=== PATIENT | male | born 1975 | race African-American/Black ===

== ENCOUNTER 2022-10-02 11:40 | Emergency (ER) | payer SELFPAY ==
[~2022-10-02] VITALS: Ht 180.3 cm; Wt 100.0 kg
[2022-10-02 12:44] LABS: URINE BILIRUBIN - DIPSTICK NEGATIVE (NEGATIVE); URINE BLOOD DIPSTICK NEGATIVE (NEGATIVE); URINE COLOR YELLOW; URINE GLUCOSE - DIPSTICK NEGATIVE (NEGATIVE); URINE KETONE NEGATIVE (NEGATIVE); URINE LEUK ESTERASE NEGATIVE (NEGATIVE); URINE PROTEIN - DIPSTICK NEGATIVE (NEG-TRACE); URINE SPECIFIC GRAVITY 1.015; URINE UROBILINOGEN - DIPSTICK 0.2 E.U./dL (0.2)
[2022-10-02 12:50] LABS: URINE NITRITE - DIPSTICK NEGATIVE (Negative)
[2022-10-02] MEDS ORDERED: BACTRIM DS1 TAB PO (13:41)
[2022-10-02 13:50] VITALS: BP 137/87
== END 2022-10-02 13:50 | disposition home or self-care (01) | DRG 690 ==
LOC: ED 11:40
PROVIDERS: Emergency Medicine
DX: N34.2 Other urethritis (principal)

== ENCOUNTER 2023-01-21 07:35 | Emergency (ER) | payer OTHER ==
[2023-01-21] VITALS (8 sets, daily range): BP systolic 136–141; BP diastolic 85–97
[~2023-01-21] VITALS: Ht 180.3 cm; Wt 100.0 kg
[~2023-01-21 07:35] MED LIST: BACTRIM DS1 TAB PO
[2023-01-21] MEDS ORDERED: OMNICEF300 M1 PO (07:57)
== END 2023-01-21 09:43 | disposition home or self-care (01) | DRG 605 ==
LOC: ED 07:35
PROC: 0HQ5XZZ Repair Chest Skin, External Approach (ICD-10-PCS; principal; 2023-01-21)
DX: S21.111A Laceration without foreign body of right front wall of thorax without penetration into thoracic cavity, initial encounter (principal); W27.0XXA Contact with workbench tool, initial encounter